=== PATIENT | male | born 1985 | race Caucasian/White ===

== ENCOUNTER 2024-05-17 08:24 | Observation (INO) | payer BC, OTHER ==
[2024-05-17] MEDS ORDERED: Sodium Chloride 0.9% 2.5 ML Syringe FLUSH PRN ×2 (08:58→14:05)
[2024-05-17 09:05] LABS: BASOPHILS ABSOLUTE AUTO 0.06 K/uL (0.00-0.20); BASOPHILS PERCENT AUTO 0.4 % (0.0-1.0); EOSINOPHILS ABSOLUTE AUTO 0.11 K/uL (0.00-0.45); EOSINOPHILS PERCENT AUTO 0.7 % (0.0-6.0); HEMATOCRIT 48.7 % (42.0-52.0); HEMOGLOBIN 16.9 g/dL (14.0-18.0); IMMATURE GRAN ABSOLUTE AUTO 0.05 K/uL (0.00-0.05); IMMATURE GRAN PERCENT AUTO 0.3 % (0.0-0.4); LYMPHOCYTES ABSOLUTE AUTO 2.06 K/uL (1.00-4.80); LYMPHOCYTES PERCENT AUTO 13.8 % (24.0-44.0); MEAN CORPUSCULAR HEMOGLOBIN 31.1 pg (28.0-32.0); MEAN CORPUSCULAR HGB CONC 34.7 g/dL (32.0-36.0); MEAN CORPUSCULAR VOLUME 89.5 fL (83.0-99.0); MEAN PLATELET VOLUME 10.2 fL (9.4-12.4); MONOCYTES ABSOLUTE AUTO 0.61 K/uL (0.00-0.80); MONOCYTES PERCENT AUTO 4.1 % (0.0-8.0); NEUTROPHILS ABSOLUTE AUTO 12.03 K/uL (1.80-7.70); NEUTROPHILS PERCENT AUTO 80.7 % (41.0-71.0); PLATELET COUNT,PLT 166 K/uL (150-400); RED BLOOD CELL COUNT 5.44 M/uL (4.52-5.90); WHITE BLOOD CELL COUNT,WBC 14.92 K/uL (3.9-11.3)
[2024-05-17 09:12] LABS: INR 1.05 (0.86-1.11)
[2024-05-17 09:19] LABS: A/G RATIO 1.1 (0.9-1.6); ALBUMIN 3.7 g/dL (3.4-5.0); BILIRUBIN TOTAL 0.7 mg/dL (0.2-1.0); CALCIUM 8.6 mg/dL (8.5-10.1); CARBON DIOXIDE,CO2 29.1 mmol/L (21.0-32.0); EST CRCL DRUG DOSING (CG) 117.59 mL/min; POTASSIUM,K 4.7 mmol/L (3.5-5.1); PROTEIN TOTAL,TP 7.2 g/dL (6.4-8.2)
[2024-05-17 10:34] LABS: APPEARANCE,URINE CLEAR; BILIRUBIN,URINE NEGATIVE (NEGATIVE); COLOR,URINE YELLOW; GLUCOSE,URINE NEGATIVE (NEGATIVE); KETONES,URINE NEGATIVE (NEGATIVE); LEUKOCYTE ESTERASE,URINE NEGATIVE (NEGATIVE); NITRITE,URINE NEGATIVE (NEGATIVE); OCCULT BLOOD,URINE NEGATIVE (NEGATIVE); PROTEIN,URINE NEGATIVE (NEGATIVE); UROBILINOGEN,URINE 0.2 EU/dL (<2.0)
[2024-05-17] MEDS: Sodium Chloride 0.9% 1,000 ML IV ONE (10:52)
[2024-05-17] MEDS: Morphine 4 MG/ML Syringe IVPUSH ONE (10:53)
[2024-05-17] MEDS: Sodium Chloride 0.9% 10 ML Syringe FLUSH PRN (10:53)
[2024-05-17] MEDS: Iopamidol 755 MG/ML 500 ML Multipack Bottle IVPUSH STA (11:29)
[2024-05-17] MEDS: HYDROmorphone 0.5 MG/0.5 ML Syringe IVPUSH ONE (11:48)
[2024-05-17] MEDS ORDERED: Dexamethasone 4 MG/ML 5 ML MDV IVPUSH ONE (12:14)
[2024-05-17] MEDS: HYDROmorphone 1 MG/ML Syringe IVPUSH ONE ×2 (12:49→13:27)
[2024-05-17] MEDS ORDERED: propofoL 200 ML ONE (13:07)
[2024-05-17] MEDS ORDERED: Ropivacaine 0.5% 5 MG/ML 30 ML SDV ONE (13:08)
[2024-05-17] MEDS ORDERED: Morphine 10 MG/ML SDV ONE (13:11)
[2024-05-17] MEDS ORDERED: fentaNYL 100 MCG/2 ML SDV ONE (13:15)
[2024-05-17] MEDS ORDERED: Ondansetron 4 MG/2 ML SDV ONE (13:16)
[2024-05-17] MEDS ORDERED: Lidocaine 2% 5 ML SDV ONE (13:16)
[2024-05-17] MEDS ORDERED: Metoclopramide 10 MG/2 ML SDV ONE ×2 (13:16→14:19)
[2024-05-17] MEDS ORDERED: Rocuronium Bromide 50 MG/5 ML Syringe ONE (13:16)
[2024-05-17] MEDS ORDERED: Scopalamine 1mg/3day Transdermal Patch ONE (13:22)
[2024-05-17] MEDS: Ciprofloxacin in D5W 400 MG in Premix Bag 1 BAG IV SCH (13:28)
[2024-05-17] MEDS ORDERED: Bupivacaine 0.5% 30 ML SDV ONE (13:48)
[2024-05-17] MEDS ORDERED: Lidocaine 1% 5 ML VIAL ONE (13:59)
[2024-05-17] MEDS ORDERED: diphenhydrAMINE 50 MG/ML SDV IVPUSH PRN ×2 (14:05→21:41)
[2024-05-17] MEDS ORDERED: Sodium Chloride 0.9% 20 ML SDV IV PRN (14:05)
[2024-05-17] MEDS ORDERED: Sodium Chloride 0.9% 10 ML Syringe FLUSH PRN (14:05)
[2024-05-17] MEDS ORDERED: Ondansetron 4 MG/2 ML SDV IVPUSH PRN ×2 (14:05→14:21)
[2024-05-17] MEDS ORDERED: Sodium Chloride 0.9% 1,000 ML IV SCH (14:15)
[2024-05-17] MEDS ORDERED: Lidocaine 2% 11 ML Jelly Filled Syringe ONE (14:19)
[2024-05-17] MEDS ORDERED: droPERidol 5 MG/2 ML SDV IVPUSH PRN (14:21)
[2024-05-17] MEDS ORDERED: Albuterol 0.083% 2.5 MG/3 ML Neb Soln NEB PRN (14:21)
[2024-05-17] MEDS ORDERED: Phenylephrine HCl In 0.9% NaCl 1 MG/10 ML Syringe IVPUSH PRN (14:21)
[2024-05-17] MEDS ORDERED: Naloxone 0.4 MG/ML SDV IVPUSH PRN (14:21)
[2024-05-17] MEDS ORDERED: fentaNYL 50 MCG/ML SDV IVPUSH PRN (14:21)
[2024-05-17] MEDS ORDERED: HYDROmorphone 1 MG/ML Syringe IVPUSH PRN (14:21)
[2024-05-17] MEDS ORDERED: Metoclopramide 10 MG/2 ML SDV IVPUSH PRN (14:21)
[2024-05-17] MEDS ORDERED: Metoprolol Tartrate 5 MG/5 ML SDV ONE (14:34)
[2024-05-17] MEDS ORDERED: Magnesium Sulfate (4.06 MEQ/ML) 5 GM/10 ML SDV ONE (14:35)
[2024-05-17] MEDS ORDERED: ceFAZolin 1 GM Vial ONE (15:09)
[2024-05-17] MEDS ORDERED: Ketorolac 30 MG/ML SDV ONE (15:26)
[2024-05-17] MEDS ORDERED: Sugammadex Sodium 200 MG/2 ML VIAL IV ONE (15:28)
[2024-05-17 16:23] LABS: HEMOGLOBIN A1C 5.6 %
[2024-05-17] MEDS: metroNIDAZOLE/Normal Saline 500 MG in Premix Bag 1 BAG IV ONE (17:19)
[2024-05-17] MEDS: metroNIDAZOLE/Normal Saline 500 MG in Premix Bag 1 BAG IV SCH ×2 (18:41→21:23)
[2024-05-17] MEDS: Morphine 2 MG/ML SYRINGE IVPUSH PRN (19:13)
[2024-05-17] MEDS: Morphine 2 MG/ML SYRINGE ONE (20:53)
[2024-05-17] MEDS: HYDROmorphone 0.5 MG/0.5 ML Syringe IVPUSH PRN (20:59)
[2024-05-17] MEDS: Acetaminophen/HYDROcodone 325-5 MG Tab PO PRN (21:28)
[2024-05-17] MEDS: Acetaminophen/HYDROcodone 325-5 MG Tab ONE (21:38)
[2024-05-18] MEDS: Ciprofloxacin in D5W 400 MG in Premix Bag 1 BAG IV SCH (00:21)
[2024-05-18] MEDS ORDERED: Ciprofloxacin in D5W 400 MG in Premix Bag 1 BAG IV SCH (01:30)
[2024-05-18] MEDS: Acetaminophen/HYDROcodone 325-5 MG Tab PO PRN (01:31)
[2024-05-18] MEDS: Ketorolac 30 MG/ML SDV IVPUSH PRN (12:00)
== END 2024-05-18 12:15 | disposition home or self-care (01) ==
LOC: MW.ED 08:24 → MW.SDS 16:40 → MW.OBCHECK 16:40 → MW.MS 16:49 → MW.SDS 18:24 → MW.MS 18:25
PROVIDERS: ADMIT Surgery; ATTEND Surgery
DX: K35.33 Acute appendicitis with perforation, localized peritonitis, and gangrene, with abscess (principal); I10 Essential (primary) hypertension; Z88.0 Allergy status to penicillin
CPT/HCPCS: 36415; 44970; 74177; 80053; 81003; 83036; 83690; 84484; 85025; 85610; 93005; 96361; 96374; 96375; 96376; 99285; A9270; J0131; J0665; J0690; J0744; J1100; J1171; J1836; J1885; J2270; J2704; J2765; J2795; J3010; J3475; J3490; J7030; Q9967; 00840; 64488; 99284; J2405

== ENCOUNTER 2024-05-29 22:42 | Emergency (ER) | payer OTHER ==
[2024-05-29] MEDS: Ibuprofen 600 MG Tab PO ONE (23:22)
== END 2024-05-29 23:23 | disposition home or self-care (01) ==
LOC: MW.ED 22:42
DX: T81.30XA Disruption of wound, unspecified, initial encounter (principal); Z88.0 Allergy status to penicillin; Z90.49 Acquired absence of other specified parts of digestive tract
CPT/HCPCS: 99283; A9270

== ENCOUNTER 2024-09-23 18:15 | Emergency (ER) | payer OTHER ==
[2024-09-23] MEDS ORDERED: Sodium Chloride 0.9% 10 ML Syringe FLUSH PRN (18:48)
[2024-09-23 19:41] LABS: BASOPHILS ABSOLUTE AUTO 0.05 K/uL (0.00-0.20); BASOPHILS PERCENT AUTO 0.4 % (0.0-1.0); EOSINOPHILS ABSOLUTE AUTO 0.15 K/uL (0.00-0.45); EOSINOPHILS PERCENT AUTO 1.2 % (0.0-6.0); HEMATOCRIT 53.4 % (42.0-52.0); HEMOGLOBIN 18.1 g/dL (14.0-18.0); IMMATURE GRAN ABSOLUTE AUTO 0.03 K/uL (0.00-0.05); IMMATURE GRAN PERCENT AUTO 0.2 % (0.0-0.4); LYMPHOCYTES ABSOLUTE AUTO 1.73 K/uL (1.00-4.80); MEAN CORPUSCULAR HEMOGLOBIN 30.9 pg (28.0-32.0); MEAN CORPUSCULAR HGB CONC 33.9 g/dL (32.0-36.0); MEAN CORPUSCULAR VOLUME 91.1 fL (83.0-99.0); MEAN PLATELET VOLUME 9.9 fL (9.4-12.4); MONOCYTES ABSOLUTE AUTO 0.64 K/uL (0.00-0.80); MONOCYTES PERCENT AUTO 5.2 % (0.0-8.0); NEUTROPHILS ABSOLUTE AUTO 9.73 K/uL (1.80-7.70); PLATELET COUNT,PLT 178 K/uL (150-400); RED BLOOD CELL COUNT 5.86 M/uL (4.52-5.90); WHITE BLOOD CELL COUNT,WBC 12.33 K/uL (3.9-11.3)
[2024-09-23 19:58] LABS: ALANINE AMINOTRANSFERASE,ALT 44 IU/L (14-63); ALBUMIN 3.7 g/dL (3.4-5.0); ALKALINE PHOSPHATASE 78 U/L (46-116); ASPARTATE AMNIOTRANSFERASE,AST 41 IU/L (15-37); BILIRUBIN TOTAL 0.9 mg/dL (0.2-1.0); BLOOD UREA NITROGEN,BUN 12 mg/dL (7.0-18.0); CALCIUM 9.3 mg/dL (8.5-10.1); CARBON DIOXIDE,CO2 27.7 mmol/L (21.0-32.0); CHLORIDE,CL 101 mmol/L (98-107); CREATININE 1.2 mg/dL (0.8-1.3); EST CRCL DRUG DOSING (CG) 97.99 mL/min; GLUCOSE RANDOM 92 mg/dL (74-106); MAGNESIUM 1.7 mg/dL (1.8-2.4); POTASSIUM,K 4.3 mmol/L (3.5-5.1); PROTEIN TOTAL,TP 7.4 g/dL (6.4-8.2); SODIUM,NA 139 mmol/L (136-148)
[2024-09-23 20:00] LABS: ESTIMATED GFR 80 mL/min (>60); ETHANOL BLOOD MEDICAL < 3.0 mg/dL
== END 2024-09-23 21:05 | disposition home or self-care (01) ==
LOC: MW.ED 18:15
DX: R56.9 Unspecified convulsions (principal); T40.2X5A Adverse effect of other opioids, initial encounter; F11.11 Opioid abuse, in remission; F17.210 Nicotine dependence, cigarettes, uncomplicated; Z90.49 Acquired absence of other specified parts of digestive tract; Z88.0 Allergy status to penicillin
CPT/HCPCS: 36415; 70450; 70450-26; 71045; 71045-26; 80053; 80307; 83735; 85025; 93005; 99285